=== PATIENT | female | born 1970 | race American Indian/Alaskan Native ===

== ENCOUNTER 2016-05-12 03:53 | Emergency (ER) | payer SELFPAY ==
[2016-05-12 04:39] LABS: Basophils % (Auto) 0.5 % (0.0-1.8); Eosinophils % (Auto) 2.2 % (0.0-4.3); Hematocrit 38.6 % (30.3-42.9); Hemoglobin 12.4 gm/dl (10.1-14.3); Mean Corpuscular HGB Conc 32 % (30-34); Platelet Count 315 K/mm3 (140-440); Red Blood Count 5.59 M/mm3 (3.65-5.03); Red Cell Distribution Width 15.8 % (13.2-15.2); White Blood Count 7.1 K/mm3 (4.5-11.0)
[2016-05-12 04:55] LABS: Anion Gap 18 mmol/L; BUN/Creatinine Ratio 14.44; Blood Urea Nitrogen 13 mg/dL (7-17); Calcium 9.2 mg/dL (8.4-10.2); Carbon Dioxide 27 mmol/L (22-30); Chloride 102.6 mmol/L (98-107); Glucose 94 mg/dL (65-100); Potassium 3.7 mmol/L (3.6-5.0); Sodium 144 mmol/L (137-145)
[2016-05-12 05:09] LABS: Mean Corpuscular Hemoglobin 22 pg (28-32); Mean Corpuscular Volume 69 fl (79-97)
[2016-05-12] MEDS ORDERED: CATAPRES PO ONE (16:36)
--- NOTE | 2016-05-12 16:39 | Emergency Department Report ---
Blank Doc - Documentation Documentation: On reevaluation of patient noticed her blood pressure was still elevated this provider ordered her energy 0.1 mg by mouth now. Still about 5-7 people ahead of this patient.
--- NOTE | 2016-05-12 20:59 | Emergency Department Report ---
ED Chest Pain HPI - General Chief Complaint: Chest Pain Stated Complaint: CHEST PAIN Time Seen by Provider: 05/12/16 20:47 Source: patient Mode of arrival: Ambulatory Limitations: No Limitations - History of Present Illness Initial Comments: This is a 45-year-old Afro[place]Citizen [place] female who presents to the emergency department with complaint of midsternal chest tightness that began last night about 3 hours prior to presentation, but about 17 hours ago. Associated with some mild shortness of breath. It is nonradiating. She denies any fever, nausea, vomiting, diaphoresis. She does not use tobacco or illicit drugs. She does not a primary care doctor. No recent travel or sick contacts at home. She did not take anything for symptoms prior to presentation. Patient still has some chest pain but it is improved down to a 3 out of 10. Severity scale (0 -10): 6 - Related Data Allergies Allergy/AdvReac Type Severity Reaction Status Date / Time No Known Allergies Allergy Unverified 05/12/16 04:06 BRYAN score - Bryan Score Age > 65: (0) No Aspirin use within the Past 7 Days: (0) No 3 or more CAD Risk Factors: (0) No 2 or more Angina events in past 24 hrs: (1) Yes Known CAD with more than 50% Stenosis: (0) No Elevated Cardiac Markers: (0) No ST Deviation Greater than 0.5mm: (0) No BRYAN Score: 1 ED Review of Systems ROS: Stated complaint: CHEST PAIN Other details as noted in HPI Comment: All other systems reviewed and negative Constitutional: denies: chills, fever Eyes: denies: eye pain, eye discharge, vision change ENT: denies: ear pain, throat pain Respiratory: shortness of breath. denies: cough Cardiovascular: chest pain. denies: palpitations Gastrointestinal: denies: abdominal pain, nausea, diarrhea Genitourinary: denies: urgency, dysuria, discharge Musculoskeletal: denies: back pain, joint swelling, arthralgia Skin: denies: rash, lesions Neurological: denies: headache, weakness, paresthesias ED Past Medical Hx - Past Medical History Previous Medical History?: No - Surgical History Past Surgical History?: No - Social History Smoking Status: Never Smoker Substance Use Type: None ED Physical Exam - General Limitations: No Limitations - Other Other exam information: GENERAL: The patient is well-developed well-nourished. Patient does not appear in any acute distress. HEENT: Normocephalic. Atraumatic. Extraocular motions are intact. Patient has moist mucous membranes. Pupils equal reactive to light bilaterally. NECK: Supple. Trachea is midline. CHEST/LUNGS: Clear to auscultation. There is no respiratory distress noted. Midsternal chest pain is reproducible to palpation of the chest wall. HEART/CARDIOVASCULAR: Regular. There is no tachycardia. There is no gallop rub or murmur. ABDOMEN: Abdomen is soft, nontender. Patient has normal bowel sounds. There is no abdominal distention. SKIN: There is no rash. There is no edema. There is no diaphoresis. NEURO: The patient is awake, alert, and oriented. The patient is cooperative. The patient has no focal neurologic deficits. The patient has normal speech. MUSCULOSKELETAL: There is no tenderness or deformity. There is no limitation range of motion. There is no evidence of acute injury. ED Course Vital Signs 05/12/16 05/12/16 05/12/16 04:07 16:32 16:50 Temperature 98.2 F 98.2 F Pulse Rate 74 68 68 Respiratory 20 16 Rate Blood Pressure 193/109 181/104 Blood Pressure 181/104 [Right] O2 Sat by Pulse 100 100 Oximetry 05/12/16 21:00 Temperature Pulse Rate Respiratory 18 Rate Blood Pressure Blood Pressure [Right] O2 Sat by Pulse 100 Oximetry ED Medical Decision Making - Lab Data Result diagrams: 05/12/16 04:24 05/12/16 04:24 - EKG Data -: EKG Interpreted by Sd EKG shows normal: sinus rhythm, axis, intervals, QRS complexes, ST-T waves ( flat T waves) Rate: normal - EKG Data When compared to previous EKG there are: previous EKG unavailable Interpretation: other (flat T waves, otherwise normal) - Radiology Data Radiology results: image reviewed interpreted by me: Chest x-ray did not show any acute process. Heart is normal shape and size. No effusions. No pneumothorax. No signs of pneumonia seen. - Medical Decision Making 45-year-old female presents to the emergency department with complaint of some midsternal nonradiating chest pain that began almost 20 hours ago at this point. Patient was evaluated with physical exam, labs, imaging EKG. EKG does not show any signs of ST elevation MD, ischemia or dysrhythmia. Chest x-ray does not show any acute process. Patient's labs been unremarkable including negative troponins 3 and a d-dimer that was negative. Patient has a BRYAN score of 1 if her chest pain is considered to be anginal, and 0 if it does not. Patient was low on the well's score criteria and negative on the pulmonary and wasn't rule out criteria, but nonetheless the d-dimer was negative as well. Patient was given some aspirin to protect her heart. Patient was reevaluated multiple times normal hours and she says that she is feeling much better and pain-free. Patient does not have any significant risk factors other than some hypertension. She'll be given referrals for primary care and cardiology. It is suggested that she follow up with cardiology for an outpatient stress test. However she will return to the emergency department with any return of her symptoms or any acute distress. - Differential Diagnosis MD, PE, costochondritis, pneumonia, GERD Critical Care Time: No Critical care attestation.: If time is entered above; I have spent that time in minutes in the direct care of this critically ill patient, excluding procedure time. ED Disposition Clinical Impression: Chest pain Qualifiers: Chest pain type: unspecified Qualified Code(s): R07.9 - Chest pain, unspecified Hypertension Qualifiers: Hypertension type: essential hypertension Qualified Code(s): I10 - Essential ( primary) hypertension Disposition: DISCHARGED TO HOME OR SELFCARE Is pt being admited?: No Does the pt Need Aspirin: No Condition: Stable Instructions: Chest Pain (ED), Hypertension (ED) Additional Instructions: Please follow-up with a primary care doctor in the next few days. I've also given you a referral for a local fleecer, Dr. Jalloh, to follow-up regarding your recent chest pain and to get an outpatient stress test. Try to stay away from foods that are high in salt and caffeinated products to help with your elevated blood pressure. Return to the emergency department with any worsening of your symptoms or any acute distress. Referrals: VANDANA RICHARDS MD [Primary Care Provider] - 3-5 Days ELAINE WEBB MD [Staff Physician] - 3-5 Days MALIKA JALLOH MD [Staff Physician] - 3-5 Days [facility] [Outside] - 3-5 Days Time of Disposition: :37
[2016-05-12] MEDS ORDERED: BABY ASPIRIN PO ONE (22:29)
[2016-05-12 22:37] VITALS: BP 139/89
--- NOTE | 2016-05-13 09:09 | XRay Report ---
PORTABLE CHEST: INDICATION: Chest pain. COMPARISON: None similar at this institution. FINDINGS: Portable, frontal chest radiograph suggests borderline cardiomegaly. Clear lungs. EKG leads. Unremarkable bones. CONCLUSION: Slight cardiomegaly without acute chest process, as described. Thank you for the opportunity to participate in this patient's care.
== END 2016-05-12 23:00 | disposition home or self-care (01) ==
LOC: ED 03:53
DX: R07.2 Precordial pain (principal); I10 Essential (primary) hypertension
CPT/HCPCS: 36415; 71010; 80048; 84484; 85025; 85379; 93005; 93010; 99285